=== PATIENT | female | born 1950 | race Caucasian/White ===

== ENCOUNTER → 2017-05-11 | Outpatient (CLI) | payer MEDICARE | END | disposition home or self-care (01) | LOC: PCVCCLINIC 16:01 | PROVIDERS: ATTEND Internal Medicine Cardiovascular Disease | DX: I47.1 Supraventricular tachycardia (principal); I10 Essential (primary) hypertension; E78.00 Pure hypercholesterolemia, unspecified; R73.03 Prediabetes; R07.89 Other chest pain; Z82.49 Family history of ischemic heart disease and other diseases of the circulatory system; Z79.899 Other long term (current) drug therapy | CPT/HCPCS: 93005; G0463 ==

== ENCOUNTER → 2017-05-18 | Outpatient (CLI) | payer MEDICARE ==
--- NOTE | 2017-05-18 18:34 | PCVCIMAG ---
APPROVED REPORT Study performed: 05/18/2017 16:15:19 EXAM: Comprehensive 2D, Doppler, and color-flow Echocardiogram Status: routine BSA: 1.73 HR: 56 bpmBP: 140/80 mmHg Other Information Study Quality: Good Indications Hypertension/HDD Hyperlipidemia. Pre diabetes, Atrial tachycardia. 2D Dimensions LVEF(%): 66.46 (>50%) IVSd: 10.19 (7-11mm)LVOT Diam: 20.61 (18-24mm) LVDd: 38.83 mm PWd: 8.04 (7-11mm)Ascending Ao: 29.14 (22-36mm) LVDs: 24.80 (25-40mm) Left Atrium: 26.08 (27-40mm) Aortic Root: 27.77 mm Luong's LVEF: 66.46 % Volumes Left Atrial Volume (Systole) Single Plane 4CH: 19.44 mLSingle Plane 2CH: 22.83 mL Aortic Valve AoV Peak Leonidas.: 1.63 m/s AO Peak Gr.: 10.61 mmHgLVOT Max P.08 mmHg LVOT Max V: 1.01 m/s LE Vmax: 2.07 cm2 Mitral Valve E/A Ratio: 1.2 MV Decel. Time: 200.18 ms MV E Max Leonidas.: 0.82 m/s MV A Leonidas.: 0.71 m/s IVRT: 103.81 ms TDI E/Lateral E': 7.45E/Medial E': 10.25 Medial E' Leonidas.: 0.08 m/s Lateral E' Leonidas.: 0.11 m/s Pulmonary Valve PV Peak Gr.: 1.51 mmHg Left Ventricle The left ventricle is normal size. There is normal LV segmental wall motion. There is normal left ventricular wall thickness. Left ventricular systolic function is normal. The left ventricular ejection fraction is within the normal range. ef 55% The left ventricular diastolic function is normal. Right Ventricle The right ventricle is normal size. The right ventricular systolic function is normal. Atria The left atrium size is normal. The right atrium size is normal. Aortic Valve The aortic valve is normal in structure. Trace aortic regurgitation. There is no aortic valvular stenosis. Mitral Valve The mitral valve is normal in structure. Trace mitral regurgitation. No evidence of mitral valve stenosis. Tricuspid Valve The tricuspid valve is normal in structure. There is no tricuspid valve regurgitation noted. Pulmonic Valve The pulmonary valve is normal in structure. There is no pulmonic valvular regurgitation. Great Vessels The aortic root is normal in size. IVC is normal in size and collapses with >50% inspiration Pericardium There is no pericardial effusion. <Conclusion> The left ventricle is normal size. Left ventricular systolic function is normal. The left ventricular ejection fraction is within the normal range. ef 55% The left ventricular diastolic function is normal. The right ventricle is normal size. The left atrium size is normal. The aortic valve is normal in structure. Trace mitral regurgitation. There is no tricuspid valve regurgitation noted. There is no pericardial effusion.
== END | disposition home or self-care (01) ==
LOC: PCVCIMAG 15:53
PROVIDERS: ATTEND Internal Medicine Cardiovascular Disease
DX: I10 Essential (primary) hypertension (principal); E78.5 Hyperlipidemia, unspecified; R00.0 Tachycardia, unspecified; R73.03 Prediabetes
CPT/HCPCS: 93306